=== PATIENT | male | born 1965 | race Hispanic/Latino ===

== ENCOUNTER 2024-03-02 22:59 | Inpatient (IN) | payer BC ==
[2024-03-02] MEDS ORDERED: Acetaminophen 325 MG TAB PO PRN (23:59)
[2024-03-02] MEDS ORDERED: Ondansetron PF 4 MG/2 ML Vial IVP PRN (23:59)
[2024-03-03] MEDS ORDERED: Dextrose 5% in Water 1,000 ML IV PRN (00:03)
[2024-03-03] MEDS ORDERED: Dextrose 50% Abboject 50 ML SYRINGE SLOW IVP PRN (00:03)
[2024-03-03] MEDS ORDERED: Glucagon 1 MG/ML KIT IM PRN (00:03)
[2024-03-03] MEDS ORDERED: hydrALAZINE 20 MG/ML VIAL SLOW IVP PRN (00:07)
[2024-03-03] MEDS: Carvedilol 6.25 MG TAB PO SCH ×2 (00:29→09:38)
[2024-03-03 00:59] VITALS: BMI 25.7
[2024-03-03 01:15] LABS: Troponin I 0.075 ng/mL (< 0.028)
[2024-03-03 05:53] LABS: #Basophils Less than 0.03 10x3/uL (0.0-0.2); %Basophils 0.3 % (0.0-1.0); %Eosinophils 1.1 % (0.0-10.0); %Monocytes 8.5 % (0.0-10.0); %Neutrophils 68.5 % (42.0-75.0); Hematocrit 28.8 % (42.0-52.0); Hemoglobin 9.9 g/dL (14.0-18.0); Mean Corpuscular HGB CONC 34.4 g/dL (32.0-36.0); Mean Corpuscular Volume 104.7 fL (78.0-98.0); Mean Platelet Volume 10.2 fL (7.4-10.4); Platelet Count 123 10x3/uL (130-400); RBC Distribution Width 12.4 % (11.5-14.5); Red Blood Cell (RBC) Count 2.75 mill/uL (4.70-6.10)
[2024-03-03 06:07] LABS: Hemoglobin A1c 5.7 % (4.0-6.0)
[2024-03-03 06:10] LABS: Anion Gap 13 mmol/L (10-20); BUN (Urea Nitrogen) 21 mg/dL (8.4-25.7); Calc. Creatinine Clearance 57 mL/min (70-130); Calcium 8.8 mg/dL (7.8-10.44); Carbon Dioxide 24 mmol/L (22-29); Chloride 103 mmol/L (98-107); Estimated GFR 54; Glucose 102 mg/dL (70-105); Sodium 137 mmol/L (136-145)
[2024-03-03 06:37] LABS: Troponin I 0.063 ng/mL (< 0.028)
[2024-03-03 08:05] LABS: Bilirubin Negative (Negative); Blood, Urine Small (Negative); Glucose, Urine (Dipstick) >=1000 mg/dL (Negative); Ketone, Urine Negative (Negative); Leukocyte Negative (Negative); Nitrite Negative (Negative); Protein, Urine (Dipstick) 100 mg/dL (Neg-Trace); Specific Gravity, Urine 1.015 (1.005-1.030); Urobilinogen 0.2 mg/dL (Less than 2)
[2024-03-03 08:07] LABS: Bacteria/HPF None Seen HPF (None Seen); Clarity Hazy (Clear); RBC/HPF None Seen HPF (0-3); Squamous Epithelial None Seen HPF (0-3); WBC/HPF 0-3 HPF (0-3)
[2024-03-03 08:35] LABS: Magnesium 1.9 mg/dL (1.6-2.6)
[2024-03-03 08:36] LABS: Creatinine, Urine 56.92 mg/dL (63-166); Protein, Urine Random Quant 89 mg/dL (1-14); Sodium, Urine 85 mmol/L (Not Available); Urea Nitrogen, Random Urine Greater than 100 mg/dl
[2024-03-03] MEDS: Thiamine 100 MG TAB PO SCH (09:39)
[2024-03-03] MEDS: Potassium Chloride 20 MEQ TAB PO SCH (09:39)
[2024-03-03] MEDS: Aspirin 81 mg Enteric Coated Tablet PO SCH (09:39)
[2024-03-03] MEDS: Folic Acid 1 MG TAB PO SCH (09:39)
[2024-03-03] MEDS: Furosemide 40 MG (4 mL) VIAL SLOW IVP SCH (09:40)
[2024-03-03] MEDS: Multivit, Therapeutic 1 TAB PO SCH (09:40)
[2024-03-03] MEDS: Amlodipine 5 MG TAB PO SCH (17:49)
[2024-03-03 19:16] LABS: Anion Gap 15 mmol/L (10-20); BUN (Urea Nitrogen) 22 mg/dL (8.4-25.7); Calc. Creatinine Clearance 42 mL/min (70-130); Calcium 9.2 mg/dL (7.8-10.44); Carbon Dioxide 27 mmol/L (22-29); Chloride 98 mmol/L (98-107); Estimated GFR 38; Glucose 249 mg/dL (70-105); Potassium 3.8 mmol/L (3.5-5.1); Sodium 136 mmol/L (136-145)
[2024-03-03 19:21] LABS: Troponin I 0.042 ng/mL (< 0.028)
[2024-03-03] MEDS: Clopidogrel Bisulfate 75 MG TAB PO SCH (20:15)
[2024-03-03] MEDS ORDERED: GUAIFENESIN SF SOLN 200 MG/10 ML UDCUP PO PRN (20:46)
[2024-03-03] MEDS: Benzonatate 100 MG CAP PO PRN (21:08)
[2024-03-03] MEDS: Nicotine 14 MG PATCH TD PRN (21:08)
[2024-03-04 08:22] LABS: #Basophils Less than 0.03 10x3/uL (0.0-0.2); %Basophils 0.2 % (0.0-1.0); %Eosinophils 1.9 % (0.0-10.0); %Lymphocytes 20.3 % (21.0-51.0); %Monocytes 8.6 % (0.0-10.0); %Neutrophils 68.8 % (42.0-75.0); Hematocrit 33.4 % (42.0-52.0); Hemoglobin 11.3 g/dL (14.0-18.0); Mean Corpuscular HGB CONC 33.8 g/dL (32.0-36.0); Mean Corpuscular Volume 106.4 fL (78.0-98.0); Mean Platelet Volume 10.1 fL (7.4-10.4); Platelet Count 140 10x3/uL (130-400); RBC Distribution Width 12.2 % (11.5-14.5); Red Blood Cell (RBC) Count 3.14 mill/uL (4.70-6.10)
[2024-03-04 08:36] LABS: Albumin 3.4 g/dL (3.5-5.0); Anion Gap 14 mmol/L (10-20); BUN (Urea Nitrogen) 20 mg/dL (8.4-25.7); BUN/Creatinine Ratio 11.43; Calc. Creatinine Clearance 48 mL/min (70-130); Calcium 8.9 mg/dL (7.8-10.44); Carbon Dioxide 24 mmol/L (22-29); Chloride 101 mmol/L (98-107); Estimated GFR 44; Glucose 169 mg/dL (70-105); Phosphorus 2.9 mg/dL (2.3-4.7); Potassium 3.2 mmol/L (3.5-5.1); Sodium 136 mmol/L (136-145)
[2024-03-04 09:21] VITALS: TEMP 97.5
[2024-03-04] MEDS: Amlodipine 5 MG TAB PO SCH (09:29)
[2024-03-04] MEDS: Potassium Chloride 20 MEQ TAB PO SCH (09:29)
[2024-03-04] MEDS: Empagliflozin 10 MG TAB PO SCH (09:31)
[2024-03-04] MEDS: Clopidogrel Bisulfate 75 MG TAB PO SCH (09:31)
[2024-03-04 09:32] VITALS: BP 143/79
[2024-03-04 10:32] LABS: Magnesium 1.9 mg/dL (1.6-2.6)
== END 2024-03-04 11:00 | disposition home or self-care (01) | DRG 291 ==
LOC: 2NO 03-03 00:08
PROVIDERS: ADMIT Student in an Organized Health Care Education/Training Program; ATTEND Internal Medicine
DX: I13.0 Hypertensive heart and chronic kidney disease with heart failure and stage 1 through stage 4 chronic kidney disease, or unspecified chronic kidney disease (principal); I50.33 Acute on chronic diastolic (congestive) heart failure; J96.01 Acute respiratory failure with hypoxia; N17.9 Acute kidney failure, unspecified; I24.89 Other forms of acute ischemic heart disease; I16.0 Hypertensive urgency; E78.5 Hyperlipidemia, unspecified; Z66 Do not resuscitate; Z79.899 Other long term (current) drug therapy; I25.10 Atherosclerotic heart disease of native coronary artery without angina pectoris; Z90.49 Acquired absence of other specified parts of digestive tract; F17.210 Nicotine dependence, cigarettes, uncomplicated; N18.30 Chronic kidney disease, stage 3 unspecified; E11.22 Type 2 diabetes mellitus with diabetic chronic kidney disease; E87.6 Hypokalemia; E88.09 Other disorders of plasma-protein metabolism, not elsewhere classified
CPT/HCPCS: 36415; 36416; 71045; 71275; 76770; 80048; 80053; 80069; 81001; 82570; 83036; 83605; 83690; 83735; 83880; 84156; 84300; 84443; 84484; 84540; 85025; 85610; 85730; 93005; 93306; 96372; 96374; J1650; J1940; Q9967